=== PATIENT | female | born 1935 | race Caucasian/White ===

== ENCOUNTER 2023-11-16 22:13 | Emergency (ER) | payer MEDICARE, BC ==
[~2023-11-16] VITALS: Ht 165.1 cm; Wt 81.2 kg
[2023-11-16 22:37] LABS: BASOPHILS # (AUTO) 0.2 K/UL (0.0-0.2); BASOPHILS % (AUTO) 2.4 % (0.0-2.0); EOSINOPHILS # (AUTO) 0.3 K/uL (0.0-0.7); EOSINOPHILS % (AUTO) 3.4 % (0.0-7.0); HEMATOCRIT 41.1 % (31.2-41.9); HEMOGLOBIN 13.5 g/dL (10.9-14.3); LYMPHOCYTES # (AUTO) 2.3 K/uL (0.8-4.8); LYMPHOCYTES % (AUTO) 29.9 % (20.5-51.5); MEAN CORPUSCULAR HGB CONC 33 g/dL (32.3-35.6); MEAN CORPUSCULAR VOLUME 93.9 fL (75.5-95.3); MONOCYTES # (AUTO) 0.4 K/uL (0.1-1.30); MONOCYTES % (AUTO) 5.4 % (0.0-11.0); NEUTROPHILS # (AUTO) 4.4 K/uL (1.8-8.9); NEUTROPHILS % (AUTO) 58.9 % (38.5-71.5); PLATELET COUNT (AUTO) 258 K/uL (179-408); RED BLOOD CELL COUNT(AUTO) 4.37 MIL/uL (3.63-4.92); RED CELL DISTRIBUTION WIDTH 15.4 % (12.3-17.7); WHITE BLOOD COUNT (AUTO) 7.5 K/uL (3.8-11.8)
[2023-11-16 22:42] LABS: DIFFERENTIAL COMMENT 1
[2023-11-16 22:45] LABS: CALCIUM 9.4 mg/dL (8.5-10.1); CARBON DIOXIDE 28 mmol/L (21-32); CHLORIDE 105 mmol/L (98-107); CREATININE 0.7 mg/dL (0.6-1.3); GLUCOSE 108 mg/dL (74-106); POTASSIUM 4.1 mmol/L (3.5-5.1); SODIUM SERUM 140 mmol/L (136-145); UREA NITROGEN, BLOOD 23 mg/dL (7-18)
[2023-11-16] MEDS ORDERED: ONDANSETRON 4 MG/2 ML VIAL IV ONE (22:45)
[2023-11-16] MEDS ORDERED: DIGO125T PO (22:51)
[2023-11-16] MEDS ORDERED: APIX5TAB PO (22:51)
[2023-11-16] MEDS ORDERED: ESCI-9 PO (22:51)
[2023-11-16] MEDS ORDERED: ATOR80TA PO (22:51)
[2023-11-16] MEDS ORDERED: DICL100G31 TP (22:52)
[2023-11-16] MEDS ORDERED: ONDA4TAB11 PO (22:52)
[2023-11-16] MEDS ORDERED: METO25TA6 PO (22:52)
[2023-11-16] MEDS ORDERED: ALPR0.5T8 PO (22:52)
[2023-11-16] MEDS ORDERED: LEVO25TA9 PO (22:52)
[2023-11-16 22:54] LABS: ALANINE AMINOTRANSFERASE 37 U/L (14-59); ALBUMIN 3.3 g/dL (3.4-5.0); ALKALINE PHOSPHATASE 62 U/L (50-136); ASPARTATE AMINOTRANSFERASE 21 U/L (15-37); BILIRUBIN,DIRECT 0.2 mg/dL (0.0-0.2); BILIRUBIN,TOTAL 0.6 mg/dL (0.2-1.0); TOTAL PROTEIN, SERUM 7.1 g/dL (6.4-8.2)
[2023-11-16] MEDS ORDERED: ONDANSETRON 4 MG/2 ML VIAL ONE (22:56)
[2023-11-17] MEDS ORDERED: ONDA4TAB5 PO (03:27)
[2023-11-17 05:09] VITALS: BP 145/79; TEMP 97.9; O2SAT 98
== END 2023-11-17 05:13 ==
LOC: ER 22:32
DX: R11.10 Vomiting, unspecified (principal); R07.89 Other chest pain; I48.91 Unspecified atrial fibrillation; E78.5 Hyperlipidemia, unspecified; E03.9 Hypothyroidism, unspecified; Z79.899 Other long term (current) drug therapy
CPT/HCPCS: 99285; 74176; 96374; 71045; 80076; 80048; 80162; 83690; 85025; 84484 ×3; 36415 ×2; 93005; 83880; J2405; A4606; A4663